=== PATIENT | male | born 1950 | race Caucasian/White ===

== ENCOUNTER 2018-06-12 09:28 | Emergency (ER) | payer MEDICARE ==
--- NOTE | 2018-06-12 09:53 | ED ---
Throat Pain/Nasal Congestion - HPI Summary HPI Summary: This patient is a 67 year old M presenting to ED with a chief complaint of epistaxis in both nares since 30-40 minutes ago. The patient said it started on the right then moved to the left. Patient had 2 episodes of epistaxis yesterday. The patient rates the pain 0/10 in severity. Symptoms aggravated by nothing. Symptoms alleviated by nothing. Patient reports he did not pick his nose. Patient takes low dose ASA and is not on any other blood thinners. PMHx of HTN and DM. - History of Current Complaint Chief Complaint: EDEpistaxis Time Seen by Provider: 06/12/18 09:44 Hx Obtained From: Patient Onset/Duration: Sudden Onset, Lasting Minutes - 30-40 minutes ago, Still Present - Allergies/Home Medications Allergies/Adverse Reactions: Allergies Allergy/AdvReac Type Severity Reaction Status Date / Time No Known Allergies Allergy Verified 09/20/17 13:23 PMH/Surg Hx/FS Hx/Imm Hx Endocrine/Hematology History: Reports: Hx Diabetes - type 1 Cardiovascular History: Reports: Hx Hypertension Infectious Disease History: No Infectious Disease History: Denies: History Other Infectious Disease, Traveled Outside the [place] in Last 30 Days - Family History Known Family History: Negative: Cardiac Disease, Hypertension, Diabetes - Social History Alcohol Use: Rare Substance Use Type: Reports: None Smoking Status (MU): Never Smoked Tobacco Review of Systems Negative: Fever Positive: Epistaxis All Other Systems Reviewed And Are Negative: Yes Physical Exam - Summary Physical Exam Summary: Appearance: Well appearing, no pain distress Skin: warm, dry, reflects adequate perfusion Head/face: normal Eyes: EOMI, SUZI ENT: blood in the nose, no active bleeding at this time Neck: supple, non-tender Respiratory: CTA, breath sounds present Cardiovascular: RRR, pulses symmetrical Abdomen: non-tender, soft Musculoskeletal: normal, strength/ROM intact Neuro: normal, sensory motor intact, A&Ox3 Triage Information Reviewed: Yes Vital Signs On Initial Exam: Initial Vitals Temp Pulse Resp BP Pulse Ox 99.1 F 81 18 206/105 98 06/12/18 09:32 06/12/18 09:32 06/12/18 09:32 06/12/18 09:32 06/12/18 09:32 Vital Signs Reviewed: Yes Diagnostics - Vital Signs Vital Signs Temp Pulse Resp BP Pulse Ox 06/12/18 09:32 99.1 F 81 18 206/105 98 - Laboratory Result Diagrams: 06/12/18 10:01 06/12/18 10:01 Lab Statement: Any lab studies that have been ordered have been reviewed, and results considered in the medical decision making process. Re-Evaluation - Re-Evaluation First Eval Re-Evaluation Time: 11:31 Comment: Discussed results with the patient. The patient is uncompliant with his BP medications. Second Eval Re-Evaluation Time: 11:40 Comment: Discussed plan for discharge. Patient understands and agrees with this plan. He was told to take his BP medications. EENT Course/Dx - Course Assessment/Plan: This patient is a 67 year old M presenting to ED with a chief complaint of epistaxis in both nares since 30-40 minutes ago. Blood work obtained. In the ED course, the patient was given clonidine. The patient will be discharged with dx of epistaxis and uncontrolled hypertension. He was instructed to take his BP medication. No active bleeding at present so no packing indicated.Patient understands and agrees with this plan. - Differential Diagnoses Differential Diagnoses: Epistaxis, Other - uncontrolled hypertension - Diagnoses Provider Diagnoses: Epistaxis, Uncontrolled hypertension Discharge - Sign-Out/Discharge Documenting (check all that apply): Patient Departure - discharge Patient Received Moderate/Deep Sedation with Procedure: No - Discharge Plan Condition: Stable Disposition: HOME Patient Education Materials: Nosebleed (ED), Hypertension (ED) Referrals: Santo Najera MD [Primary Care Provider] - 3 Days Additional Instructions: RETURN TO THE EMERGENCY DEPARTMENT FOR CHANGING OR WORSENING SYMPTOMS. - Billing Disposition and Condition Condition: STABLE Disposition: Home - Attestation Statements Document Initiated by Amalia: Yes Documenting Scribe: Jabier Dunne Provider For Whom Amalia is Documenting (Include Credential): Campos Dodge MD Scribe Attestation: Jabier Ledbetter scribed for Campos Dodge MD on 06/12/18 at 1156. Scribe Documentation Reviewed: Yes Provider Attestation: The documentation as recorded by the Jabier chaudhary accurately reflects the service I personally performed and the decisions made by me, Campos Dodge MD Status of Scribe Document: Viewed
[2018-06-12] MEDS ORDERED: cloNIDine TAB* 0.1 MG PO ONE (09:54)
[2018-06-12 10:10] LABS: ABS Basophils 0.1 10^3/ul (0-0.2); ABS Eosinophils 0.1 10^3/ul (0-0.6); ABS Lymphocytes 1.4 10^3/ul (1.0-4.8); ABS Monocytes 0.5 10^3/ul (0-0.8); ABS Neutrophils 3.7 10^3/ul (1.5-7.7); ABS Nucleated RBC 0 10^3/ul; Eosinophil % 2.2 %; Hematocrit 37 % (36-46); Hemoglobin 12.3 g/dL (14.0-18.0); Lymphocyte % 24.3 %; Mean Corpuscular HGB Conc 34 g/dL (31-36); Mean Corpuscular Hemoglobin 32 pg (27-31); Mean Corpuscular Volume 96 fL (80-94); Mean Platelet Volume 8.5 fL (7.4-10.4); Nucleated Red Blood Cells % 0; Platelet Count 227 10^3/uL (150-450); Red Blood Count 3.82 10^6 /uL (4.18-5.48); Red Cell Distribution Width 13 % (10.5-15); White Blood Count 5.8 10^3/uL (3.5-10.8)
[2018-06-12 10:16] LABS: Activated Partial Thrombo Time 32.3 seconds (26.0-36.3); INR 0.83 (0.77-1.02)
[2018-06-12 10:25] LABS: Albumin 3.7 g/dL (3.2-5.2); Albumin/Globulin Ratio 1.5 (1-3); EGFR Non-African American 96.7 (>60); Globulin 2.4 g/dL (2-4); Potassium 4.2 mmol/L (3.5-5.0); Total Bilirubin 0.6 mg/dL (0.2-1.0); Total Protein 6.1 g/dL (6.4-8.9)
--- OUTSIDE RECORDS SUMMARY | 2018-06-12 10:38 | XMS REPORT | Continuity of Care Document ---
:1950 External Reference #:[id number] Author Name Abhishek Hartley M.D. Address [address] [place] [address] Care Team Providers Name Role Phone Santo Najera M.D. Primary Care Physician Unavailable Payers Date Identification Numbers Payment Provider Subscriber Policy Number: [id number] [employer] Abdirizak Huerta PayID: [id number] [address] [place] [address] Advance Directives Description No Information Available Problems Date Description Provider Status Onset: 05/28/2014 Pure hypercholesterolemia Abhishek Hartley M.D. Active Onset: 05/28/2014 Essential hypertension Abhishek Hartley M.D. Active Onset: Depressive disorder Active Onset: Type 1 diabetes mellitus Active Note: 1982 Onset: Hearing loss Active Onset: 01/08/2015 Ocular hypertension Abhishek Hartley M.D. Active Onset: 01/08/2015 Congenital nystagmus Abhishek Hartley M.D. Active Onset: 01/08/2015 Combined form of senile cataract Abhishek Hartley M.D. Active Family History Date Family Member(s) Observation Comments Father No Current Problems Mother No Current Problems Social History Type Date Description Comments Sex Unknown Marital Status Single Occupation [employer] Work Status Retired ETOH Use Rarely consumes alcohol Tobacco Use Start: Unknown Patient has never smoked Smoking Status Reviewed: 05/31/18 Patient has never smoked Allergies, Adverse Reactions, Alerts Description No Known Drug Allergies Medications Medication Date Status Form Strength Qnty SIG Indications Ordering Provider Bupropion HCL ER Active Tablets ER 300mg Unknown (XL) 000 24HR Sumatriptan Active Solution 6mg/0.5ML Santo Najera Succinate 000 Auto-Inject M.DWen Atorvastatin Active Tablets 20mg Unknown Calcium 000 Fluticasone Active Suspension 50mcg/Act Unknown Propionate 000 Lantus Solostar Active Solution 100Unit/ML Santo Najera, 000 Pen-Inject M.DWen Quinapril HCL Active Tablets 40mg Unknown 000 Humalog Kwikpen Active Solution 100Unit/ML Santo Najera, 000 Pen-Inject M.DWen Viagra Active Tablets 50mg Santo Najera 000 M.DWen Hydrocortisone Active Cream 0.2% Santo Najera Valerate 000 M.DWen Econazole Nitrate Active Cream 1% Santo Najera 000 M.DWen Novolog Flexpen Active Solution 100Unit/ML Unknown 000 Pen-Inject Multi Vitamin Active Tablets Unknown Daily 000 Aspirin Active Tablets 81mg Unknown 000 Immunizations Description No Information Available Vital Signs Description No Information Available Results Description No Information Available Procedures Date Code Description Status 11/29/2017 64240 Visual Field Exam Extended Completed 11/29/2017 07442 Est Patient Intermediate Exam Completed 05/21/2017 90483 Fundus Photography With Interpretation And Report Completed 05/21/2017 64856 Est Patient Comprehensive Exam Completed 10/22/2016 50143 Visual Field Exam Extended Completed 10/22/2016 08188 Est Patient Intermediate Exam Completed 02/10/2016 25194 Est Patient Comprehensive Exam Completed 07/25/2015 58212 Visual Field Exam Extended Completed 07/25/2015 33884 Est Patient Intermediate Exam Completed 01/08/2015 74534 Est Patient Comprehensive Exam Completed 05/28/2014 73495 Visual Field Exam Extended Completed 05/28/2014 35598 Gonioscopy Completed 05/28/2014 18529 Est Patient Intermediate Exam Completed 10/16/2013 75076 Fundus Photography With Interpretation And Report Completed 10/16/2013 93670 Est Patient Comprehensive Exam Completed 04/17/2013 07844 Visual Field Exam Extended Completed 04/17/2013 98041 Est Patient Intermediate Exam Completed 10/13/2012 05748 Pachymetry Completed 10/13/2012 90819 Est Patient Comprehensive Exam Completed 10/13/2012 07429 Fundus Photography With Interpretation And Report Completed 12/31/2009 56743 Determination Of Refractive State Completed 12/31/2009 24202 Est Patient Comprehensive Exam Completed 12/28/2008 07558 Determination Of Refractive State Completed 12/28/2008 81014 Est Patient Comprehensive Exam Completed 07/22/2006 05200 Visual Field Exam Extended Completed 07/22/2006 43745 Determination Of Refractive State Completed 07/22/2006 83503 Est Patient Comprehensive Exam Completed 06/09/2005 54881 Visual Field Exam Intermediate Completed 06/08/2005 60006 Determination Of Refractive State Completed 06/08/2005 44746 Est Patient Comprehensive Exam Completed 05/23/2004 45105 Visual Field Exam Extended Completed 05/21/2004 15534 Fundus Photography With Interpretation And Report Completed 05/21/2004 77535 Determination Of Refractive State Completed 05/21/2004 76106 Est Patient Comprehensive Exam Completed Encounters Type Date Location Provider Dx Diagnosis Office Visit 01/24/2013 Abhishek Hartley, Shania Jackson, [phone] Conjunctival 12:00p , pc O.D. Hemorrhage Plan of Treatment 05/31/2018 - Abhishek Hartley M.D.H40.053 Ocular hypertension, bilateralComments :Smoking can increase the risk of developing or worsening any eye related disease, as well as affect your overall health. If you are a smoker, we strongly recommend that you quit.If you are not a smoker, we strongly recommend that you do not start. You have Ocular Hypertension in both eyes. This means that your eye pressure is higher than average, but you have not been diagnosed with Glaucoma.Follow up:6 Month Follow Up DFE/IOP You can expect to have your eyes dilated at your next visit. If Dr. Hartley orders any additional testing, it may require extra time. We recommend that you bring sunglasses, as dilation drops often make you light sensitive until they wear off. We always recommend you bring someone to drive you home if you are uncomfortable driving with your eyes dilated. If you have any questions before your next visit, feel free to call our office at .E10.9 Type 1 diabetes mellitus without complicationsComments:You have diabetes. I do not detect any changes in both of your retinas from diabetes at this time. Proper control of your diabetes is important for the health of your eyes. Changes in your eyes from diabetes can happen without symptoms, so it is important that you have your eyes examined. Dr. Hartley has sent a report to your primary care doctor, letting them know there is no damage from the Diabetes in your eyes.H55.01 Congenital [id number] Combined forms of age-related cataract, bilateralComments:You have been diagnosed with cataracts. If you are happy with your vision as it is now, then we willsee you at your next scheduled appointment. If you feel like your vision is getting worse before your scheduled appointment, please call [facility] or Gifty at [phone].
[2018-06-12] MEDS ORDERED: Verapamil SR TAB* 240 MG PO ONE (12:06)
[2018-06-12 13:26] VITALS: BP 155/85
== END 2018-06-12 13:34 | disposition home or self-care (01) ==
LOC: ED 09:28
DX: R04.0 Epistaxis (principal); I10 Essential (primary) hypertension; E10.9 Type 1 diabetes mellitus without complications
CPT/HCPCS: 36415; 80053; 85025; 85610; 85730; 99285; A9270-GY

== ENCOUNTER 2019-06-03 17:14 | Emergency (ER) | payer MEDICARE ==
[2019-06-03] MEDS ORDERED: Fluorescein Sodium TOPICAL* 1 MG TEST STRIP OPHTHALMIC ONE (17:28)
--- NOTE | 2019-06-03 17:29 | ED ---
Throat Pain/Nasal Congestion - HPI Summary HPI Summary: Patient complains of redness and bulging to right eye after rubbing it this evening. Denies any other symptoms, pain or injury including vision change, headache, eye pain. Patient states he was working with wood earlier and vital got some sawdust in his eye and then rubbed it. Denies any known event with obvious pain due to foreign body. Denies wearing contact lenses. - History of Current Complaint Chief Complaint: EDEyeProblem Time Seen by Provider: 06/03/19 17:27 Hx Obtained From: Patient Onset/Duration: Sudden Onset, Lasting Hours Associated Signs And Symptoms: Positive: Negative Cough: None - Allergies/Home Medications Allergies/Adverse Reactions: Allergies Allergy/AdvReac Type Severity Reaction Status Date / Time No Known Allergies Allergy Verified 06/03/19 17:18 Home Medications: Home Medications Atorvastatin* [Lipitor*] 20 mg PO 1700 12/29/14 [History Confirmed 06/03/19] Ibuprofen TAB* [Motrin TAB*] 800 mg PO Q6H PRN 12/29/14 [History Confirmed 06/02] Insulin Lispro [Humalog] 100 unit SC QID MDD 50 units/day 12/29/14 [History Confirmed 06/03/19] Quinipril 60 tab PO DAILY 12/29/14 [History Confirmed 06/03/19] Aspirin 81 mg CHEW TAB* [Aspirin Low Dose TAB*] 81 mg PO DAILY 09/20/17 [ History Confirmed 06/03/19] Econazole 1% CREAM (NF) [Econazole 1 % CREAM (NF)] 1 applic TOPICAL DAILY [History Confirmed 06/03/19] Fluticasone NASAL SPRAY 50MCG* [Flonase NASAL SPRAY 50MCG*] 2 spray BOTH NARES DAILY 09/20/17 [History Confirmed 06/03/19] Glucagon* [Glucagen*] 1 mg .SEE ORDER SEE INSTRUCTIONS MDD as directed 09/20/17 [History Confirmed 06/03/19] Hydrocortisone 2.5% CREAM(NF) 1 applic TOPICAL BID 09/20/17 [History Confirmed 06/03/19] SUMAtriptan SQ* [Imitrex SQ*] 6 mg SUBCUT WEEKLY 09/20/17 [History Confirmed ] Tadalafil [Cialis] 10 mg PO DAILY 09/20/17 [History Confirmed 06/03/19] PMH/Surg Hx/FS Hx/Imm Hx Endocrine/Hematology History: Reports: Hx Diabetes - type 1 Cardiovascular History: Reports: Hx Hypertension Denies: Hx Angina, Hx Pacemaker/ICD, Hx Valvular Heart Disease Respiratory History: Denies: Hx Asthma, Hx Chronic Obstructive Pulmonary Disease (COPD) History: Denies: Hx Chronic Renal Failure Sensory History: Denies: Hx Eye Prosthesis Opthamlomology History: Denies: Hx Legally Blind EENT History: Denies: Hx Deafness Neurological History: Denies: Hx Dementia Infectious Disease History: No Infectious Disease History: Denies: History Other Infectious Disease, Traveled Outside the [place] in Last 30 Days - Family History Known Family History: Negative: Cardiac Disease, Hypertension, Diabetes - Social History Alcohol Use: Rare Substance Use Type: Reports: None Smoking Status (MU): Former Smoker Type: Cigarettes Review of Systems Constitutional: Negative Positive: Erythema ENT: Negative Cardiovascular: Negative Respiratory: Negative Gastrointestinal: Negative Genitourinary: Negative Musculoskeletal: Negative Skin: Negative Neurological/Mental Status: Negative Psychological: Normal All Other Systems Reviewed And Are Negative: Yes Physical Exam - Summary Physical Exam Summary: Bulging of exterior membrane of eye with dark red blood behind it. EOMI. PERRLA. No abrasions, FB noted on ultraviolet exam. Triage Information Reviewed: Yes Vital Signs On Initial Exam: Initial Vitals Temp Pulse Resp BP Pulse Ox 98.7 F 78 16 165/94 98 06/03/19 17:16 06/03/19 17:16 06/03/19 17:16 06/03/19 17:16 06/03/19 17:16 Vital Signs Reviewed: Yes Appearance: Positive: Well-Appearing Skin: Positive: Warm Head/Face: Positive: Normal Head/Face Inspection Eyes: Positive: EOMI, SUZI, Conjunctiva Inflammed. Negative: Discharge Neck: Positive: Supple Respiratory/Lung Sounds: Positive: Clear to Auscultation Cardiovascular: Positive: Normal Abdomen Description: Positive: Nontender Musculoskeletal: Positive: Normal Neurological: Positive: Normal Psychiatric: Positive: Normal AVPU Assessment: Alert - Wise Coma Scale Best Eye Response: 4 - Spontaneous Best Motor Response: 6 - Obeys Commands Best Verbal Response: 5 - Oriented Coma Scale Total: 15 Procedures - Sedation Patient Received Moderate/Deep Sedation with Procedure: No Diagnostics - Vital Signs Vital Signs Temp Pulse Resp BP Pulse Ox 06/03/19 17:16 98.7 F 78 16 165/94 98 - Laboratory Lab Statement: Any lab studies that have been ordered have been reviewed, and results considered in the medical decision making process. EENT Course/Dx - Course Course Of Treatment: Patient complains of redness and bulging to right eye after rubbing it this evening. Denies any other symptoms, pain or injury including vision change, headache, eye pain. Patient states he was working with wood earlier and vital got some sawdust in his eye and then rubbed it. Denies any known event with obvious pain due to foreign body. Denies wearing contact lenses. Vital signs within normal limits. Findings consistent with subconjunctival hemorrhage. Also evaluated by attending Dr. Glez. - Diagnoses Provider Diagnoses: Subconjunctival hemorrhage of right eye Discharge ED - Sign-Out/Discharge Documenting (check all that apply): Patient Departure - Discharge Plan Condition: Stable Disposition: HOME Patient Education Materials: Subconjunctival Hemorrhage (ED) Referrals: Santo Najera MD [Primary Care Provider] - Abhishek Hartley MD [Medical Doctor] - Additional Instructions: Avoid touching right eye. Wednesday morning call ophthalmology Dr Hartley for possible further evaluation. In the meantime return to the ED for any new or worsening symptoms. - Billing Disposition and Condition Condition: STABLE Disposition: Home
[2019-06-03] MEDS ORDERED: Tetracaine 0.5% OPTH.SOL 4 ML* 1 DROP BTL SCH (17:30)
[2019-06-03 19:05] VITALS: BP 158/83
== END 2019-06-03 19:04 | disposition home or self-care (01) ==
LOC: ED 17:14
DX: H11.31 Conjunctival hemorrhage, right eye (principal); Z87.891 Personal history of nicotine dependence; E10.9 Type 1 diabetes mellitus without complications; I10 Essential (primary) hypertension; Z79.899 Other long term (current) drug therapy; Z79.4 Long term (current) use of insulin; Z79.82 Long term (current) use of aspirin
CPT/HCPCS: 99282; A9270-GY

== ENCOUNTER 2022-01-20 05:44 | Observation (INO) ==
[2022-01-20] MEDS ORDERED: Buffered Lidocaine 1% SYRIN 1 ml INTRADERM ONE (06:00)
[2022-01-20] MEDS ORDERED: Lactated Ringers 1000 ml BAG 1,000 ML IV SCH ×2 (06:00→09:00)
[2022-01-20] MEDS ORDERED: ceFAZolin 2 GM in NS PREMIX 2 GM/100 ML BAG IVPB ONE (06:14)
[2022-01-20] MEDS ORDERED: HYDROmorphone 1 MG/1 ML SYRINGE IV PRN (07:16)
[2022-01-20] MEDS ORDERED: Prochlorperazine 5 mg/ml 2 ml VIAL (10 mg) IV PRN (07:16)
[2022-01-20] MEDS ORDERED: Naloxone 0.4 mg VIAL 0.4 mg/ml 1 ml VIAL IV PRN (07:16)
[2022-01-20] MEDS ORDERED: Phenylephrine IV 10 MG/ML 1 ml VIAL ONE (07:18)
[2022-01-20] MEDS ORDERED: Lidocaine 2% PF 5 ML VIAL ONE (07:18)
[2022-01-20] MEDS ORDERED: fentaNYL 100 mcg/2 ml 50 MCG/ML VIAL ONE (07:24)
[2022-01-20] MEDS ORDERED: Midazolam 2 mg/2 ml VIAL 1 mg/ml 2 ml VIAL (2 mg) ONE (07:24)
[2022-01-20] MEDS ORDERED: Dexamethasone IV 4 MG/ML VIAL 1 ml VIAL ONE (08:33)
[2022-01-20] MEDS ORDERED: Ondansetron 4 mg VIAL 2 MG/ML 2 ml VIAL ONE (08:33)
[2022-01-20] MEDS ORDERED: Lactulose 30 ml UDC PO PRN (08:47)
[2022-01-20] MEDS ORDERED: Morphine 2 MG/ML SYRINGE IV PRN (08:47)
[2022-01-20] MEDS ORDERED: Ondansetron 4 mg VIAL 2 MG/ML 2 ml VIAL IV PRN (08:47)
[2022-01-20] MEDS ORDERED: Ondansetron ODT 4 mg TAB 4 MG TAB PO PRN (08:47)
[2022-01-20] MEDS ORDERED: Magnesium Hydroxide LIQ 30 ML UDC PO PRN (08:47)
[2022-01-20] MEDS ORDERED: Propofol 10 MG/ML 20 ML BTL ONE (08:59)
[2022-01-20] MEDS ORDERED: Vitamin THERAPEUTIC TAB PO SCH (09:00)
[2022-01-20] MEDS ORDERED: Magnesium Hydroxide LIQ 30 ML UDC PO SCH (09:00)
[2022-01-20] MEDS ORDERED: hydrALAZINE 20 mg/ml 1 ML Vial IV ONE (10:32)
[2022-01-20] MEDS ORDERED: hydrALAZINE 20 mg/ml 1 ML Vial IV IV SLOW PU ONE (10:48)
[2022-01-20] MEDS ORDERED: Insulin GLARGINE 100 un/ml 10 ml VIAL SUBCUT ONE (14:15)
[2022-01-20] MEDS ORDERED: Dextrose 50% Syringe 50 ml 25 GM/50 ML SYRINGE IV PUSH PRN (14:15)
[2022-01-20] MEDS ORDERED: ceFAZolin 1 GM ADVAN 1 GM in NS 0.9% 50 ML 50 ML IVPB SCH (16:00)
[2022-01-20 16:18] VITALS: BP 159/81
[2022-01-21] MEDS ORDERED: Insulin GLARGINE 100 un/ml 10 ml VIAL SUBCUT SCH (09:00)
== END 2022-01-20 18:00 | disposition home or self-care (01) ==
LOC: SSU 05:44 → OR 05:44
PROVIDERS: ADMIT Orthopaedic Surgery Adult Reconstructive Orthopaedic Surgery; ATTEND Orthopaedic Surgery Adult Reconstructive Orthopaedic Surgery